=== PATIENT | female | born 1960 | race Caucasian/White ===

== ENCOUNTER → 2018-04-29 | Outpatient (CLI) | payer OTHER ==
[2018-04-29 12:08] LABS: PH-URINE 5.5 (5.0 - 8.0); URINE APPEARANCE CLOUDY; URINE BILIRUBIN NEGATIVE (NEGATIVE); URINE BLOOD 250 ery/uL (NEGATIVE); URINE COLOR DK YELLOW; URINE GLUCOSE NEGATIVE (NEGATIVE); URINE KETONE NEGATIVE (NEGATIVE); URINE LEUKOCYTE ESTERASE 2+ (NEGATIVE); URINE NITRATE POSITIVE (NEGATIVE); URINE PROTEIN(semi-quant) TRACE mg/dL (NEGATIVE); URINE UROBILINOGEN NORMAL (NORMAL)
[2018-04-29 12:22] LABS: URINE MUCUS PRESENT (NOT PRESENT); URINE WBC >50 /hpf (0-3)
== END ==
LOC: LAB 11:52
PROVIDERS: Family Medicine
DX: R30.0 Dysuria (principal)

== ENCOUNTER 2019-05-15 12:17 | Emergency (ER) | payer MEDICARE ==
[~2019-05-15] VITALS: Ht 167.6 cm; Wt 104.5 kg
[~2019-05-15 12:17] MED LIST: BUSPIRONE HYDRO10 MG PO; CLARITIN LIQUI-10 MG PO; MELOXICAM7.5 MG PO; NATURAL FLAX1000 MG PO; PANTOPRAZOLE SO40 MG PO; PROAIR HFA0.09 MG/AC IH; SERTRALINE HYD100 MG PO; SINGULAIR 110 MG/TAB PO; VITAMIN D5000 I1 PO; XANAX0.5 M1 PO
[2019-05-15 12:51] LABS: EOS # 0.2 (0.04-0.40); EOS % 3.7 % (1.0-5.0); HEMATOCRIT 44.5 % (37.0-47.0); HEMOGLOBIN 14.5 g/dL (12.5-16.0); MEAN CELL VOLUME 85 fl (78-100); MEAN CORPUSCULAR HEMOGLOBIN 28 pg (27-31); MEAN CORPUSCULAR HGB CONC 33 g/dL (33-37); MEAN PLATELET VOLUME 10.7 fl (7.4-10.4); MONO # 0.5 (0.20-0.80); NEU # 2.9 (1.40-6.50); PLATELET COUNT 282 K/mm3 (130-400); RED BLOOD COUNT 5.23 M/mm3 (4.10-5.30); RED CELL DISTRIBUTION WIDTH 13.3 % (11.5-14.5); WHITE BLOOD COUNT 4.6 K/mm3 (4.8-10.8)
[2019-05-15 13:06] LABS: ALBUMIN 4.2 g/dL (3.5-5.0)
[2019-05-15 13:07] LABS: POTASSIUM 3.8 mmol/L (3.5-5.1); SODIUM 136 mmol/L (136-145)
[2019-05-15 13:08] LABS: CALCIUM 9.4 mg/dL (8.3-10.5)
[2019-05-15 13:09] LABS: GLUCOSE 145 mg/dL (65-105); TOTAL PROTEIN 7.8 g/dL (6.4-8.3)
[2019-05-15 13:10] LABS: CARBON DIOXIDE 24 mmol/L (22-29)
[2019-05-15 13:14] LABS: AST-SGOT 52 U/L (5-34)
[2019-05-15 13:16] LABS: ALT/SGPT 56 U/L (0-55)
[2019-05-15 13:21] LABS: ACETAMINOPHEN < 1 ug/mL; ALCOHOL IN-HOUSE < 10 mg/dL (<10)
[2019-05-15 13:50] LABS: PH-URINE 5.5 (5.0 - 8.0); URINE APPEARANCE HAZY; URINE BILIRUBIN NEGATIVE (NEGATIVE); URINE BLOOD TRACE (NEGATIVE); URINE COLOR YELLOW; URINE GLUCOSE NEGATIVE (NEGATIVE); URINE KETONE NEGATIVE (NEGATIVE); URINE NITRATE NEGATIVE (NEGATIVE); URINE PROTEIN(semi-quant) TRACE mg/dL (NEGATIVE); URINE UROBILINOGEN NORMAL (NORMAL)
[2019-05-15 13:51] LABS: URINE LEUKOCYTE ESTERASE 2+ (NEGATIVE)
[2019-05-15] MEDS ORDERED: ATIVAN0.5 MG PO (19:12)
[2019-05-15 19:48] VITALS: BP 148/90
== END 2019-05-15 19:48 ==
LOC: ED 12:17
PROVIDERS: Nurse Practitioner Primary Care
DX: R45.851 Suicidal ideations (principal); F32.9 Major depressive disorder, single episode, unspecified; F41.9 Anxiety disorder, unspecified; J45.909 Unspecified asthma, uncomplicated; I10 Essential (primary) hypertension; F43.10 Post-traumatic stress disorder, unspecified; Z90.710 Acquired absence of both cervix and uterus; Z90.49 Acquired absence of other specified parts of digestive tract; Z98.1 Arthrodesis status

== ENCOUNTER → 2021-03-11 | Outpatient (CLI) | payer MEDICARE ==
[~2021-03-11] MED LIST changes: +ATIVAN0.5 MG PO; +BUSPAR 15MG TAB15 MG PO; +DESVENLAFAXINE100 M3 PO; +DESYREL 100MG100 MG PO; +ELIQUIS5 MG PO; +FLUCONAZOLE200 MG PO; +FOLIC ACID1 MG PO; +METHOTREXATE2.5 MG PO; +NYSTATIN UD5 ML/CUP PO; +PHENERGAN 25 TA25 MG PO; +PLAQUENIL 200M200 MG PO; +PREDNISONE20 M1 PO
== END ==
LOC: MAMMO 10:25
DX: Z12.31 Encounter for screening mammogram for malignant neoplasm of breast (principal)

== ENCOUNTER 2021-03-29 14:05 | Emergency (ER) | payer MEDICARE ==
[~2021-03-29 14:05] MED LIST changes: -BUSPAR 15MG TAB15 MG PO; -DESVENLAFAXINE100 M3 PO; -DESYREL 100MG100 MG PO; -ELIQUIS5 MG PO; -FLUCONAZOLE200 MG PO; -FOLIC ACID1 MG PO; -METHOTREXATE2.5 MG PO; -NYSTATIN UD5 ML/CUP PO; -PHENERGAN 25 TA25 MG PO; -PLAQUENIL 200M200 MG PO; -PREDNISONE20 M1 PO
[2021-03-29] MEDS ORDERED: DESYREL 100MG100 MG PO (14:48)
[2021-03-29 15:18] LABS: HEMATOCRIT 40.7 % (37.0-47.0); HEMOGLOBIN 13.6 g/dL (12.5-16.0); MEAN CELL VOLUME 88 fl (78-100); MEAN CORPUSCULAR HEMOGLOBIN 29 pg (27-31); MEAN CORPUSCULAR HGB CONC 33 g/dL (33-37); MEAN PLATELET VOLUME 10.4 fl (7.4-10.4); PLATELET COUNT 177 K/mm3 (130-400); RED BLOOD COUNT 4.65 M/mm3 (4.10-5.30); RED CELL DISTRIBUTION WIDTH 13.2 % (11.5-14.5); WHITE BLOOD COUNT 2.6 K/mm3 (4.8-10.8)
[2021-03-29 15:27] LABS: ALBUMIN 3.4 g/dL (3.4-4.8); POTASSIUM 3.5 mmol/L (3.5-5.1)
[2021-03-29 15:28] LABS: CALCIUM 9.1 mg/dL (8.3-10.5)
[2021-03-29 15:29] LABS: TOTAL PROTEIN 6.9 g/dL (6.2-8.1)
[2021-03-29 15:31] LABS: TOTAL BILIRUBIN 0.9 mg/dL (0.2-1.2)
[2021-03-29 15:38] LABS: LYMPHOCYTE 25 % (20-51); MONOCYTE 21 % (3-10); NEUTROPHILS 47 % (42-75)
[2021-03-29] MEDS ORDERED: DESVENLAFAXINE100 M3 PO (15:46)
[2021-03-29] MEDS ORDERED: METHOTREXATE2.5 MG PO (15:46)
[2021-03-29] MEDS ORDERED: PLAQUENIL 200M200 MG PO (15:47)
[2021-03-29] MEDS ORDERED: PREDNISONE20 M1 PO (19:51)
[2021-03-29] MEDS ORDERED: PHENERGAN 25 TA25 MG PO (19:52)
[2021-03-29 20:12] VITALS: BP 98/69
== END 2021-03-29 20:12 | disposition home or self-care (01) ==
LOC: ED 14:05
PROVIDERS: Family Medicine
DX: B34.9 Viral infection, unspecified (principal); R11.2 Nausea with vomiting, unspecified; T36.4X5A Adverse effect of tetracyclines, initial encounter; D72.819 Decreased white blood cell count, unspecified; Z20.822 Contact with and (suspected) exposure to COVID-19
CPT/HCPCS: J1100; J1885; J7030

== ENCOUNTER 2021-04-08 17:21 | Observation (INO) | payer MEDICARE ==
[~2021-04-08 17:21] MED LIST changes: +DESVENLAFAXINE100 M3 PO; +DESYREL 100MG100 MG PO; +METHOTREXATE2.5 MG PO; +PHENERGAN 25 TA25 MG PO; +PLAQUENIL 200M200 MG PO; +PREDNISONE20 M1 PO
[2021-04-08] MEDS ORDERED: FOLIC ACID1 MG PO (17:35)
[2021-04-08 18:05] LABS: BASO # 0.02 (0.02-0.10); EOS # 0.14 (0.04-0.40); EOS % 3.4 % (1.0-5.0); HEMATOCRIT 42.9 % (37.0-47.0); LYMPH# 1.32 (1.50-4.00); MEAN CELL VOLUME 87 fl (78-100); MEAN CORPUSCULAR HEMOGLOBIN 28 pg (27-31); MEAN CORPUSCULAR HGB CONC 33 g/dL (33-37); MEAN PLATELET VOLUME 9.8 fl (7.4-10.4); MONO # 0.77 (0.20-0.80); NEU # 1.85 (1.40-6.50); PLATELET COUNT 137 K/mm3 (130-400); RED BLOOD COUNT 4.94 M/mm3 (4.10-5.30); RED CELL DISTRIBUTION WIDTH 13.4 % (11.5-14.5); WHITE BLOOD COUNT 4.1 K/mm3 (4.8-10.8)
[2021-04-08 18:12] LABS: ALBUMIN 3.5 g/dL (3.4-4.8); POTASSIUM 3.5 mmol/L (3.5-5.1)
[2021-04-08 18:13] LABS: CALCIUM 9.6 mg/dL (8.3-10.5)
[2021-04-08 18:14] LABS: TOTAL PROTEIN 7.8 g/dL (6.2-8.1)
[2021-04-08 18:16] LABS: TOTAL BILIRUBIN 1.2 mg/dL (0.2-1.2)
[2021-04-08 19:26] LABS: URINE APPEARANCE HAZY; URINE COLOR YELLOW; URINE GLUCOSE NEGATIVE (NEGATIVE); URINE KETONE NEGATIVE (NEGATIVE); URINE PROTEIN(semi-quant) TRACE mg/dL (NEGATIVE)
[2021-04-08 19:27] LABS: URINE BILIRUBIN 1+ (NEGATIVE); URINE BLOOD NEGATIVE (NEGATIVE); URINE LEUKOCYTE ESTERASE TRACE (NEGATIVE); URINE MUCUS PRESENT (NOT PRESENT); URINE NITRATE NEGATIVE (NEGATIVE); URINE UROBILINOGEN 1 mg/dL (NORMAL)
[2021-04-08] MEDS ORDERED: BUSPAR 15MG TAB15 MG PO (21:07)
[2021-04-08 21:43] LABS: PROTHROMBIN TIME 12.2 SECONDS (9.0-12.0)
[2021-04-08 21:54] VITALS: BP 136/58
[2021-04-09 02:05] VITALS: BP 136/58
[2021-04-09 05:54] VITALS: BP 117/75
[2021-04-09 07:26] LABS: HEMATOCRIT 35.5 % (37.0-47.0); HEMOGLOBIN 11.6 g/dL (12.5-16.0); MEAN CELL VOLUME 88 fl (78-100); MEAN CORPUSCULAR HEMOGLOBIN 29 pg (27-31); MEAN CORPUSCULAR HGB CONC 33 g/dL (33-37); MEAN PLATELET VOLUME 9.9 fl (7.4-10.4); PLATELET COUNT 118 K/mm3 (130-400); RED BLOOD COUNT 4.05 M/mm3 (4.10-5.30); RED CELL DISTRIBUTION WIDTH 13.5 % (11.5-14.5); WHITE BLOOD COUNT 3.1 K/mm3 (4.8-10.8)
[2021-04-09 08:03] LABS: CALCIUM 8.6 mg/dL (8.3-10.5)
[2021-04-09 08:25] LABS: LYMPHOCYTE 30 % (20-51); MONOCYTE 18 % (3-10); NEUTROPHILS 41 % (42-75); TEAR DROP CELLS 2+
[2021-04-09 09:23] VITALS: BP 106/69
[2021-04-09] MEDS ORDERED: NYSTATIN UD5 ML/CUP PO (11:53)
[2021-04-09] MEDS ORDERED: ELIQUIS5 MG PO (11:55)
[2021-04-09] MEDS ORDERED: PHENERGAN 25 TA25 MG PO (11:57)
[2021-04-09 14:30] VITALS: BP 102/65
== END 2021-04-09 15:26 | disposition home or self-care (01) ==
LOC: ED 17:21 → MED/SURG 20:54
PROVIDERS: ADMIT Physician Assistant
DX: I26.99 Other pulmonary embolism without acute cor pulmonale (principal); R91.8 Other nonspecific abnormal finding of lung field; R11.2 Nausea with vomiting, unspecified; E86.0 Dehydration; B37.9 Candidiasis, unspecified; K58.0 Irritable bowel syndrome with diarrhea; M06.9 Rheumatoid arthritis, unspecified; I10 Essential (primary) hypertension; J45.909 Unspecified asthma, uncomplicated; F43.10 Post-traumatic stress disorder, unspecified; F32.9 Major depressive disorder, single episode, unspecified; F41.9 Anxiety disorder, unspecified; Z79.899 Other long term (current) drug therapy
CPT/HCPCS: C9113; G0378; J2405; J7030; Q9967

== ENCOUNTER → 2021-06-09 | Outpatient (CLI) | payer MEDICARE ==
[~2021-06-09] MED LIST changes: +BUSPAR 15MG TAB15 MG PO; +ELIQUIS5 MG PO; +FLUCONAZOLE200 MG PO; +FOLIC ACID1 MG PO; +NYSTATIN UD5 ML/CUP PO
== END ==
LOC: RAD 14:22
DX: B39.9 Histoplasmosis, unspecified (principal)

== ENCOUNTER 2021-06-14 12:35 | Emergency (ER) | payer MEDICARE ==
[~2021-06-14] VITALS: Ht 175.3 cm; Wt 95.6 kg
[~2021-06-14 12:35] MED LIST changes: -FLUCONAZOLE200 MG PO
[2021-06-14] MEDS ORDERED: FLUCONAZOLE200 MG PO (13:19)
[2021-06-14 13:25] LABS: BASO # 0.03 (0.02-0.10); EOS % 3.6 % (1.0-5.0); HEMOGLOBIN 9.8 g/dL (12.5-16.0); LYMPH# 0.68 (1.50-4.00); MEAN CELL VOLUME 88 fl (78-100); MEAN CORPUSCULAR HEMOGLOBIN 28 pg (27-31); MEAN CORPUSCULAR HGB CONC 32 g/dL (33-37); MEAN PLATELET VOLUME 10.7 fl (7.4-10.4); MONO # 0.39 (0.20-0.80); NEU # 1.55 (1.40-6.50); PLATELET COUNT 148 K/mm3 (130-400); RED BLOOD COUNT 3.51 M/mm3 (4.10-5.30); RED CELL DISTRIBUTION WIDTH 16.4 % (11.5-14.5); WHITE BLOOD COUNT 2.8 K/mm3 (4.8-10.8)
[2021-06-14 13:38] LABS: ALBUMIN 3.5 g/dL (3.4-4.8)
[2021-06-14 13:39] LABS: POTASSIUM 3.6 mmol/L (3.5-5.1)
[2021-06-14 13:40] LABS: CALCIUM 10.4 mg/dL (8.3-10.5)
[2021-06-14 13:41] LABS: TOTAL PROTEIN 6.4 g/dL (6.2-8.1)
[2021-06-14 13:43] LABS: TOTAL BILIRUBIN 0.5 mg/dL (0.2-1.2)
[2021-06-14 13:49] LABS: PARTIAL THROMBOPLASTIN TIME 25.3 SECONDS (21.0-32.0); PROTHROMBIN TIME 10.8 SECONDS (9.0-12.0)
[2021-06-14 14:50] VITALS: BP 148/71
== END 2021-06-14 14:50 | disposition home or self-care (01) ==
LOC: ED 12:35
PROVIDERS: Family Medicine
DX: R04.2 Hemoptysis (principal); B39.2 Pulmonary histoplasmosis capsulati, unspecified; I10 Essential (primary) hypertension; J45.909 Unspecified asthma, uncomplicated; Z79.01 Long term (current) use of anticoagulants; Z86.711 Personal history of pulmonary embolism

== ENCOUNTER → 2021-07-18 | Outpatient (CLI) | payer MEDICARE ==
[~2021-07-18] MED LIST changes: +FLUCONAZOLE200 MG PO
[2021-07-18 14:13] LABS: URINE APPEARANCE HAZY; URINE BILIRUBIN NEGATIVE (NEGATIVE); URINE BLOOD NEGATIVE (NEGATIVE); URINE COLOR YELLOW; URINE GLUCOSE NEGATIVE (NEGATIVE); URINE KETONE NEGATIVE (NEGATIVE); URINE LEUKOCYTE ESTERASE 1+ (NEGATIVE); URINE MUCUS PRESENT (NOT PRESENT); URINE NITRATE NEGATIVE (NEGATIVE); URINE PROTEIN(semi-quant) TRACE mg/dL (NEGATIVE); URINE UROBILINOGEN NORMAL (NORMAL)
== END ==
LOC: LAB 13:43
PROVIDERS: Family Medicine
DX: Z00.00 Encounter for general adult medical examination without abnormal findings (principal); D64.9 Anemia, unspecified

== ENCOUNTER → 2021-07-29 | Outpatient (CLI) | payer MEDICARE ==
[2021-07-29 19:51] LABS: URINE APPEARANCE HAZY; URINE BILIRUBIN NEGATIVE (NEGATIVE); URINE BLOOD NEGATIVE (NEGATIVE); URINE COLOR YELLOW; URINE GLUCOSE NEGATIVE (NEGATIVE); URINE KETONE NEGATIVE (NEGATIVE); URINE LEUKOCYTE ESTERASE NEGATIVE (NEGATIVE); URINE NITRATE NEGATIVE (NEGATIVE); URINE PROTEIN(semi-quant) TRACE mg/dL (NEGATIVE); URINE UROBILINOGEN NORMAL (NORMAL); URINE WBC 0-1 /hpf (0-3)
[2021-07-29 19:52] LABS: URINE MUCUS PRESENT (NOT PRESENT)
== END ==
LOC: LAB 16:25
PROVIDERS: Family Medicine
DX: R30.9 Painful micturition, unspecified (principal)

== ENCOUNTER → 2021-09-09 | Outpatient (CLI) | payer MEDICARE | LOC: RAD 07:15 | DX: N18.31 Chronic kidney disease, stage 3a (principal) ==

== ENCOUNTER → 2021-09-29 | Outpatient (CLI) | payer MEDICARE ==
[2021-09-29 12:55] LABS: POTASSIUM 4.4 mmol/L (3.5-5.1)
[2021-09-29 12:56] LABS: CALCIUM 9.1 mg/dL (8.3-10.5)
== END ==
LOC: LAB 12:33
PROVIDERS: Internal Medicine Pulmonary Disease
DX: B39.2 Pulmonary histoplasmosis capsulati, unspecified (principal)

== ENCOUNTER 2021-11-12 16:21 | Emergency (ER) | payer MEDICARE ==
[2021-11-12 16:34] VITALS: BP 166/92
== END 2021-11-12 17:21 | disposition left against medical advice (07) ==
LOC: ED 16:21
DX: R69 Illness, unspecified (principal)

== ENCOUNTER → 2022-01-15 | Outpatient (CLI) | payer MEDICARE | LOC: RAD 11:46 | DX: B39.3 Disseminated histoplasmosis capsulati (principal); R91.8 Other nonspecific abnormal finding of lung field ==

== ENCOUNTER → 2022-02-03 | Outpatient (CLI) | payer MEDICARE | LOC: RAD 10:28 | DX: R91.8 Other nonspecific abnormal finding of lung field (principal); B39.9 Histoplasmosis, unspecified ==

== ENCOUNTER → 2022-03-11 | Outpatient (CLI) | payer MEDICARE | LOC: MAMMO 02-03 10:26 | DX: Z12.31 Encounter for screening mammogram for malignant neoplasm of breast (principal) ==

== ENCOUNTER → 2022-06-16 | Outpatient (CLI) | payer MEDICARE ==
[~2022-06-16] VITALS: Ht 167.6 cm; Wt 100.9 kg
[2022-06-16 12:37] VITALS: BP 130/65
[2022-06-16 12:59] LABS: HEMOGLOBIN 12.5 g/dL (12.5-16.0); MEAN PLATELET VOLUME 10.4 fl (7.4-10.4); RED BLOOD COUNT 4.47 M/mm3 (4.10-5.30); WHITE BLOOD COUNT 4.3 K/mm3 (4.8-10.8)
[2022-06-16 13:03] LABS: ALBUMIN 3.8 g/dL (3.4-4.8)
[2022-06-16 13:04] LABS: POTASSIUM 3.3 mmol/L (3.5-5.1)
[2022-06-16 13:05] LABS: CALCIUM 9.1 mg/dL (8.3-10.5)
[2022-06-16 13:08] LABS: TOTAL BILIRUBIN 0.5 mg/dL (0.2-1.2)
== END ==
LOC: RAD 11:16 → AMSURD 11:16 → LAB 11:16
PROVIDERS: Nurse Practitioner
DX: R53.81 Other malaise (principal); R19.7 Diarrhea, unspecified
CPT/HCPCS: J7030

== ENCOUNTER → 2022-12-16 | Outpatient (CLI) | payer MEDICARE ==
[2022-12-16 18:04] LABS: URINE APPEARANCE HAZY; URINE COLOR ORANGE
== END ==
LOC: LAB 17:02
PROVIDERS: Nurse Practitioner Family
DX: L30.4 Erythema intertrigo (principal); N39.0 Urinary tract infection, site not specified; R30.9 Painful micturition, unspecified

== ENCOUNTER → 2024-12-12 | Outpatient (CLI) | payer MEDICARE | LOC: MAMMO 10:00 | DX: Z12.31 Encounter for screening mammogram for malignant neoplasm of breast (principal); Z13.820 Encounter for screening for osteoporosis; M85.852 Other specified disorders of bone density and structure, left thigh; M85.851 Other specified disorders of bone density and structure, right thigh ==